=== PATIENT | male | born 1955 | race Caucasian/White ===

== ENCOUNTER → 2018-02-26 | Outpatient (CLI) | payer MEDICARE, OTHER ==
[2018-02-26 11:35] LABS: ABSOLUTE EOSINOPHILS # (AUTO) 0.1 10^3/uL (0.0-0.6); ABSOLUTE MONOCYTES (AUTO) 0.2 10^3/uL (0.1-1.4); ABSOLUTE NEUT (AUTO) 2.8 10^3/uL (1.7-8.2); BASOPHILS % (AUTO) 0.3 % (0-2); EOSINOPHILS % (AUTO) 1.6 % (0-6); HEMATOCRIT 40.4 % (37.9-51.0); HEMOGLOBIN 13.8 g/dL (13.5-17.0); MEAN CORPUSCULAR HEMOGLOBIN 30.6 pg (27.0-33.4); MEAN CORPUSCULAR HGB CONC 34.2 g/dL (32.0-36.0); MEAN CORPUSCULAR VOLUME 90 fl (80-97); MONOCYTES % (AUTO) 4.7 % (3-13); PLATELET COUNT 230 10^3/uL (150-450); RED BLOOD COUNT 4.51 10^6/uL (4.35-5.55); RED CELL DISTRIBUTION WIDTH 13.2 % (11.5-14.0); SEGMENTED NEUTROPHILS % (AUTO) 69.4 % (42-78); TOTAL CELLS COUNTED % (AUTO) 100 %; WHITE BLOOD COUNT 4.1 10^3/uL (4.0-10.5)
[2018-02-26 11:52] LABS: ALANINE AMINOTRANSFERASE 16 U/L (21-72); ALBUMIN 3.9 g/dL (3.5-5.0); ALKALINE PHOSPHATASE 117 U/L (38-126); ANION GAP 14 (5-19); ASPARTATE AMINO TRANSFERASE 22 U/L (17-59); BILIRUBIN,DIRECT 0.3 mg/dL (0.0-0.4); BILIRUBIN,TOTAL 0.8 mg/dL (0.2-1.3); BLOOD UREA NITROGEN 14 mg/dL (7-20); CALCIUM 9.5 mg/dL (8.4-10.2); CARBON DIOXIDE 26 mmol/L (22-30); CHLORIDE 99 mmol/L (98-107); GLUCOSE 241 mg/dL (75-110); POTASSIUM 4.9 mmol/L (3.6-5.0); SODIUM 138.8 mmol/L (137-145)
[2018-02-27 13:38] LABS: CREATININE URINE 30.6 mg/dL (Not Estab.)
[2018-02-28 07:05] LABS: MICROALBUMIN URINE <3.0 ug/mL (Not Estab.)
== END ==
LOC: OD 10:17
PROVIDERS: ATTEND Family Medicine Geriatric Medicine
DX: E55.9 Vitamin D deficiency, unspecified (principal); E11.9 Type 2 diabetes mellitus without complications; I10 Essential (primary) hypertension; E66.01 Morbid (severe) obesity due to excess calories; Z79.899 Other long term (current) drug therapy
CPT/HCPCS: 36415; 80053; 82043; 82306; 82570; 83036; 84443; 85025

== ENCOUNTER → 2018-03-30 | Outpatient (CLI) | payer MEDICARE, OTHER ==
[2018-03-30 10:26] LABS: ALANINE AMINOTRANSFERASE 14 U/L (21-72); ALBUMIN 3.7 g/dL (3.5-5.0); ALKALINE PHOSPHATASE 111 U/L (38-126); ANION GAP 9 (5-19); ASPARTATE AMINO TRANSFERASE 23 U/L (17-59); BILIRUBIN,DIRECT 0.2 mg/dL (0.0-0.4); BILIRUBIN,TOTAL 0.5 mg/dL (0.2-1.3); BLOOD UREA NITROGEN 15 mg/dL (7-20); CALCIUM 9.4 mg/dL (8.4-10.2); CARBON DIOXIDE 28 mmol/L (22-30); CHLORIDE 102 mmol/L (98-107); CHOLESTEROL 158.71 mg/dL (0-200); GLUCOSE 153 mg/dL (75-110); POTASSIUM 5.2 mmol/L (3.6-5.0); SODIUM 139.1 mmol/L (137-145); TOTAL PROTEIN 6.9 g/dL (6.3-8.2); TRIGLYCERIDES 52 mg/dL (<150)
[2018-03-30 10:37] LABS: DIRECT LDL 84 mg/dL (<100)
== END ==
LOC: OD 08:28
PROVIDERS: ATTEND Family Medicine Geriatric Medicine
DX: E11.9 Type 2 diabetes mellitus without complications (principal); I10 Essential (primary) hypertension; Z79.899 Other long term (current) drug therapy
CPT/HCPCS: 36415; 80053; 80061; 83036

== ENCOUNTER → 2018-04-04 | Outpatient (CLI) | payer MEDICARE, OTHER ==
[2018-04-04 08:50] LABS: ANION GAP 9 (5-19); BLOOD UREA NITROGEN 13 mg/dL (7-20); CALCIUM 9.6 mg/dL (8.4-10.2); CARBON DIOXIDE 28 mmol/L (22-30); CHLORIDE 102 mmol/L (98-107); CHOLESTEROL 181.11 mg/dL (0-200); GLUCOSE 190 mg/dL (75-110); POTASSIUM 5.2 mmol/L (3.6-5.0); SODIUM 139.1 mmol/L (137-145); TRIGLYCERIDES 57 mg/dL (<150)
[2018-04-04 09:01] LABS: DIRECT LDL 91 mg/dL (<100)
== END ==
LOC: OD 08:07
PROVIDERS: ATTEND Family Medicine Geriatric Medicine
DX: K21.0 Gastro-esophageal reflux disease with esophagitis (principal); Z79.899 Other long term (current) drug therapy; Z29.9 Encounter for prophylactic measures, unspecified; E11.42 Type 2 diabetes mellitus with diabetic polyneuropathy; I73.9 Peripheral vascular disease, unspecified; I10 Essential (primary) hypertension
CPT/HCPCS: 36415; 80048; 80061; 83036

== ENCOUNTER → 2018-04-11 | Outpatient (CLI) | payer MEDICARE, OTHER ==
[2018-04-11 09:58] LABS: ALANINE AMINOTRANSFERASE 23 U/L (21-72); CHOLESTEROL 183.63 mg/dL (0-200); POTASSIUM 5.3 mmol/L (3.6-5.0); TRIGLYCERIDES 83 mg/dL (<150)
[2018-04-11 10:09] LABS: DIRECT LDL 91 mg/dL (<100)
== END ==
LOC: OD 08:06
PROVIDERS: ATTEND Family Medicine Geriatric Medicine
DX: E87.5 Hyperkalemia (principal); E78.5 Hyperlipidemia, unspecified; E11.42 Type 2 diabetes mellitus with diabetic polyneuropathy; I73.9 Peripheral vascular disease, unspecified; I10 Essential (primary) hypertension; E55.9 Vitamin D deficiency, unspecified; K21.0 Gastro-esophageal reflux disease with esophagitis; E66.01 Morbid (severe) obesity due to excess calories; Z80.42 Family history of malignant neoplasm of prostate; Z29.9 Encounter for prophylactic measures, unspecified; Z79.899 Other long term (current) drug therapy; Z68.41 Body mass index [BMI] 40.0-44.9, adult
CPT/HCPCS: 36415; 80061; 84132; 84460

== ENCOUNTER → 2018-04-20 | Outpatient (CLI) | payer MEDICARE, OTHER | LOC: OD 07:38 | PROVIDERS: ATTEND Family Medicine Geriatric Medicine | DX: E87.5 Hyperkalemia (principal) | CPT/HCPCS: 36415; 84132 ==

== ENCOUNTER → 2018-05-31 | Outpatient (CLI) | payer MEDICARE, OTHER ==
[2018-05-31 09:23] LABS: ALANINE AMINOTRANSFERASE 29 U/L (21-72); TRIGLYCERIDES 58 mg/dL (<150)
[2018-05-31 09:34] LABS: DIRECT LDL 44 mg/dL (<100)
== END ==
LOC: OD 08:25
PROVIDERS: ATTEND Family Medicine Geriatric Medicine
DX: E78.5 Hyperlipidemia, unspecified (principal); Z79.899 Other long term (current) drug therapy
CPT/HCPCS: 36415; 80061; 84460

== ENCOUNTER → 2019-02-04 | Outpatient (CLI) | payer MEDICARE, OTHER ==
--- NOTE | 2019-02-04 08:56 | RADIOLOGY REPORT (SQ) ---
EXAM DESCRIPTION: CHEST PA/LATERAL COMPLETED DATE/TIME: 02/04/2019 8:31 am REASON FOR STUDY: PRE-OP COMPARISON: None. EXAM PARAMETERS: NUMBER OF VIEWS: two views TECHNIQUE: Digital Frontal and Lateral radiographic views of the chest acquired. RADIATION DOSE: NA LIMITATIONS: none FINDINGS: LUNGS AND PLEURA: No consolidation, pleural effusion or pneumothorax. MEDIASTINUM AND HILAR STRUCTURES: No mediastinal or hilar contour abnormality. HEART AND VASCULAR STRUCTURES: The cardiac silhouette and pulmonary vasculature are within normal ramos its. BONES: No acute findings. HARDWARE: There surgical clips that project over the right apex. OTHER: No other finding. IMPRESSION: No acute cardiopulmonary process. TECHNICAL DOCUMENTATION: JOB ID: [id number]- All Rights Reserved Reading location - IP/workstation name: [email or web address]
[2019-02-04 09:49] LABS: ABSOLUTE LYMPHOCYTES (AUTO) 1.1 10^3/uL (0.5-4.7); ABSOLUTE MONOCYTES (AUTO) 0.3 10^3/uL (0.1-1.4); ABSOLUTE NEUT (AUTO) 3.1 10^3/uL (1.7-8.2); BASOPHILS % (AUTO) 0.7 % (0-2); HEMATOCRIT 40.4 % (37.9-51.0); HEMOGLOBIN 13.7 g/dL (13.5-17.0); LYMPHOCYTES % (AUTO) 24.6 % (13-45); MEAN CORPUSCULAR HEMOGLOBIN 30.6 pg (27.0-33.4); MEAN CORPUSCULAR HGB CONC 33.9 g/dL (32.0-36.0); MEAN CORPUSCULAR VOLUME 90 fl (80-97); MONOCYTES % (AUTO) 5.8 % (3-13); PLATELET COUNT 227 10^3/uL (150-450); RED BLOOD COUNT 4.47 10^6/uL (4.35-5.55); RED CELL DISTRIBUTION WIDTH 14.5 % (11.5-14.0); SEGMENTED NEUTROPHILS % (AUTO) 67.9 % (42-78); TOTAL CELLS COUNTED % (AUTO) 100 %; WHITE BLOOD COUNT 4.6 10^3/uL (4.0-10.5)
[2019-02-04 09:57] LABS: APPEARANCE,URINE CLEAR; BILIRUBIN,URINE NEGATIVE (NEGATIVE); COLOR,URINE YELLOW; GLUCOSE, URINE >=500 mg/dL (NEGATIVE); KETONES,URINE TRACE mg/dL (NEGATIVE); LEUKOCYTE ESTERASE,URINE NEGATIVE (NEGATIVE); NITRITE,URINE NEGATIVE (NEGATIVE); PROTEIN,URINE NEGATIVE (NEGATIVE); URINE SPECIFIC GRAVITY 1.023; UROBILINOGEN,URINE NEGATIVE mg/dL (<2.0)
[2019-02-04 10:10] LABS: ANION GAP 12 (5-19); BLOOD UREA NITROGEN 16 mg/dL (7-20); CALCIUM 9.4 mg/dL (8.4-10.2); CARBON DIOXIDE 24 mmol/L (22-30); CHLORIDE 102 mmol/L (98-107); GLUCOSE 328 mg/dL (75-110); POTASSIUM 5.2 mmol/L (3.6-5.0)
--- NOTE | 2019-02-04 14:41 | EKG REPORT ---
SEVERITY:- ABNORMAL ECG - SINUS RHYTHM INCOMPLETE RBBB AND LAFB BORDERLINE R WAVE PROGRESSION, ANTERIOR LEADS BORDERLINE PROLONGED QT INTERVAL : Confirmed by: Angelica Zhu MD 04-Feb-2019 14:40:21
== END ==
LOC: OD 07:52
PROVIDERS: ATTEND Orthopaedic Surgery
DX: Z01.810 Encounter for preprocedural cardiovascular examination (principal); Z01.811 Encounter for preprocedural respiratory examination; Z01.812 Encounter for preprocedural laboratory examination; Z96.659 Presence of unspecified artificial knee joint; E11.9 Type 2 diabetes mellitus without complications
CPT/HCPCS: 36415; 71046; 80048; 81001; 83036; 85025; 93005; 93010

== ENCOUNTER 2019-03-04 09:32 | Observation (INO) | payer MEDICARE, OTHER ==
[~2019-03-04 09:32] MED LIST: BUPIVACAINE INJ/PF LIPOSOME/PF 266 MG/20 ML SDV INJ PRN; CEFAZOLIN INJ 1 GM VIAL INJ PRN; CEFAZOLIN INJ 1 GM VIAL ONE; IBUPROFEN 800 MG in NORMAL SALINE 250 ML IV PRN; LACTATED RINGERS 1000 ML IV PRN; LIDOCAINE 0.5% INJ-PF (5 MG/ML) 50 ML SDV SUBCUT PRN; OXYCODONE HCL SR 10 MG TABLET PO PRN; PANTOPRAZOLE SODIUM 20 MG TABLET.DR PO PRN; VANCOMYCIN HCL 1,000 MG in DEXTROSE 5%-WATER 250 ML IV PRN; VANCOMYCIN HCL INJ 1000 MG VIAL ONE
[2019-03-04] MEDS ORDERED: MIDAZOLAM 2 MG/2 ML INJ ONE (10:43)
[2019-03-04] MEDS ORDERED: FENTANYL CITRATE INJ/PF 100 MCG/2 ML AMPUL ONE (10:43)
[2019-03-04] MEDS ORDERED: TRANEXAMIC ACID INJ/PF 1,000 MG/10 ML SDV ONE (10:44)
[2019-03-04] MEDS ORDERED: EPHEDRINE SULFATE INJ 50 MG/1 ML AMPULE ONE (10:44)
[2019-03-04] MEDS ORDERED: ONDANSETRON HCL INJ/PF 4 MG/2 ML SDV ONE (10:44)
[2019-03-04] MEDS ORDERED: PROPOFOL INJ 200 MG/20 ML VIAL IV ONE (10:44)
[2019-03-04] MEDS ORDERED: OXYCODONE HCL SR 10 MG TABLET PO ONE (10:52)
[2019-03-04] MEDS ORDERED: PANTOPRAZOLE SODIUM 20 MG TABLET.DR PO ONE (10:53)
[2019-03-04] MEDS ORDERED: PROMETHAZINE HCL INJ 25 MG/1 ML VIAL IV PRN ×2 (13:02)
[2019-03-04] MEDS ORDERED: MORPHINE SULFATE 10 MG/ML INJ IV PRN (13:02)
[2019-03-04] MEDS ORDERED: FENTANYL CITRATE INJ/PF 100 MCG/2 ML AMPUL IV PRN ×3 (13:02)
[2019-03-04] MEDS ORDERED: DIPHENHYDRAMINE HCL 50 MG/ML VIAL IV PRN ×2 (13:02→13:16)
[2019-03-04] MEDS ORDERED: OXYCODONE-ACETAMINOPHEN 5-325 MG TABLET PO PRN ×2 (13:02)
[2019-03-04] MEDS ORDERED: MEPERIDINE HCL/PF INJ 25 MG/1 ML DISP.SYRIN IV PRN (13:02)
[2019-03-04] MEDS ORDERED: ONDANSETRON HCL INJ/PF 4 MG/2 ML SDV IV PRN ×2 (13:02→13:16)
[2019-03-04] MEDS ORDERED: ACETAMINOPHEN 325 MG TABLET PO PRN (13:16)
[2019-03-04] MEDS ORDERED: MAG HYDROX/AL HYDROX/SIMETH SUSP 30 ML UDCUP PO PRN (13:16)
[2019-03-04] MEDS ORDERED: OXYCODONE HCL IR 5 MG TABLET PO PRN (13:16)
[2019-03-04] MEDS ORDERED: ZOLPIDEM TARTRATE 5 MG TABLET PO PRN (13:16)
[2019-03-04] MEDS ORDERED: ONDANSETRON 4 MG TAB.RAPDIS PO PRN (13:16)
--- NOTE | 2019-03-04 13:16 | Operative Report ---
Operative Report DATE OF SURGERY: 03/04/19 PREOPERATIVE DIAGNOSIS: Right prosthetic patellofemoral maltracking OPERATION: Right patella revision SURGEON: MARJAN FLORENTINO ANESTHESIA: Spinal TISSUE REMOVED OR ALTERED: Cultures x2 to microbiology. Implant to CSS ESTIMATED BLOOD LOSS: 100 PROCEDURE: With the patient supine on operative table the right lower extremity is prepped and draped in a sterile fashion. The limb is elevated for exsanguination tourniquet inflated 280 torr. A a previous median parapatellar approach the knee is taken. Upon entering the capsule cultures were taken of the underlying synovial fluid. In order to keith the patella lateral patellar retinacular release is performed as well as elevation of the superficial aspect of the tibial tubercle. The examination of the knee reveals that there is contact between the lateral aspect of the patella and the lateral femoral condyle with underlying eburnated bone. The existing patellar implant is removed using oscillating saw. The patella was recut using the oscillating saw to remove the lateral protrusion. This is now sized to a 40 mm oval patella. Bridging is used a fashion patellar holes and the existing patella and poly-methacrylate with tobramycin was mixed to cement a 40 mm Anai asymmetric patella into this location. Once the cement is cured excess cement is removed. Patella tracking appears to be central. Tourniquet is deflated. Hemostasis obtained with electrocautery. The wound is irrigated with 3 L normal saline containing Betadine. Is then closed in layers with interrupted Vicryl followed by kris. A sterile compressive dressing was applied and the patient is returned to PACU in satisfactory condition.
[2019-03-04] MEDS ORDERED: GLUCAGON,HUMAN RECOMB 1 MG INJ IM PRN (14:00)
[2019-03-04] MEDS ORDERED: DEXTROSE 40% GEL 15 GM TUBE PO PRN (14:00)
[2019-03-04] MEDS ORDERED: DEXTROSE 40% GEL 15 GM TUBE X 2 PO PRN (14:00)
[2019-03-04] MEDS ORDERED: DEXTROSE 50%-WATER SYRINGE 12.5 GM/25 ML DOSE IV PRN (14:00)
[2019-03-04] MEDS ORDERED: DEXTROSE 50%-WATER SYRINGE 25 GM/50 ML DOSE IV PRN (14:00)
--- NOTE | 2019-03-04 14:43 | RADIOLOGY REPORT (SQ) ---
EXAM DESCRIPTION: KNEE RIGHT 2 VIEWS COMPLETED DATE/TIME: 03/04/2019 1:59 pm REASON FOR STUDY: Post OP -Long Cassette in PACU Z96.659 PRESENCE OF UNSPECIFIED ARTIFICIAL KNEE NAVA INT COMPARISON: None. NUMBER OF VIEWS: Two view(s). TECHNIQUE: Digital radiographic images of the right knee post-procedure. LIMITATIONS: None. FINDINGS: BONES: No worrisome or unexpected findings post-procedure. DEVICE: Total knee arthroplasty SOFT TISSUES: No worrisome findings. Expected postoperative soft tissue changes. IMPRESSION: SATISFACTORY POSTOPERATIVE RIGHT KNEE. TECHNICAL DOCUMENTATION: JOB ID: [id number] [employer]- All Rights Reserved Reading location - IP/workstation name: [email or web address]
[2019-03-04] MEDS ORDERED: PHENYLEPHRINE HCL INJ/PF 10 MG/1 ML SDV ONE (14:48)
[2019-03-04] MEDS ORDERED: TRANEXAMIC ACID INJ/PF 1,000 MG/10 ML SDV IV ONE (15:00)
[2019-03-04] MEDS: INSULIN LISPRO 100 UNIT/ML 3 ML VIAL SUBCUT SCH ×2 (15:37→21:09)
[2019-03-04] MEDS: IBUPROFEN 800 MG in NORMAL SALINE 250 ML IV SCH (16:22)
[2019-03-04] MEDS: SENNOSIDES/DOCUSATE 8.6-50 MG 1 EACH TABLET PO SCH (18:28)
[2019-03-04] MEDS: OXYCODONE HCL SR 10 MG TABLET PO SCH (21:10)
[2019-03-05] MEDS ORDERED: VANCOMYCIN HCL 1,000 MG in DEXTROSE 5%-WATER 250 ML IV ONE (01:30)
[2019-03-05] MEDS: IBUPROFEN 800 MG in NORMAL SALINE 250 ML IV SCH ×4 (01:37→21:24)
[2019-03-05] MEDS: PANTOPRAZOLE SODIUM 40 MG TABLET.DR PO SCH (06:26)
[2019-03-05 06:28] LABS: HEMOGLOBIN 11.5 g/dL (13.5-17.0); MEAN CORPUSCULAR HEMOGLOBIN 30.6 pg (27.0-33.4); MEAN CORPUSCULAR HGB CONC 33.7 g/dL (32.0-36.0); MEAN CORPUSCULAR VOLUME 91 fl (80-97); PLATELET COUNT 180 10^3/uL (150-450); RED BLOOD COUNT 3.74 10^6/uL (4.35-5.55); RED CELL DISTRIBUTION WIDTH 14.3 % (11.5-14.0); WHITE BLOOD COUNT 3.7 10^3/uL (4.0-10.5)
[2019-03-05 06:53] LABS: ANION GAP 10 (5-19); BLOOD UREA NITROGEN 16 mg/dL (7-20); CALCIUM 8.7 mg/dL (8.4-10.2); CARBON DIOXIDE 27 mmol/L (22-30); CHLORIDE 100 mmol/L (98-107); GLUCOSE 244 mg/dL (75-110); POTASSIUM 4.4 mmol/L (3.6-5.0)
--- NOTE | 2019-03-05 07:01 | PDOC DISCHARGE SUMMARY ---
Impression - Admit/DC Date/PCP Admission Date/Primary Care Provider: 03/04/19 09:32 LENKA KRAUS PA-C Discharge Date: 03/05/19 - Discharge Diagnosis (1) Mechanical complication of knee prosthesis Is this a current diagnosis for this admission?: Yes - Additional Information Resuscitation Status: Full Code Discharge Diet: Regular Discharge Activity: Balance Activity w/Rest, No tub bath Referrals: MARJAN FLORENTINO MD [ACTIVE STAFF] - 03/21/19 9:00 am Home Medications: Aspirin [Ecotrin] 81 mg PO DAILY 03/04/19 Benazepril HCl [Lotensin 10 Mg Tablet] 10 mg PO DAILY 03/04/19 Cholecalciferol (Vitamin D3) [Vitamin D3 2000 unit Tablet] 2,000 unit PO DAILY 03/04/19 Gabapentin [Neurontin 300 mg Capsule] 300 mg PO DAILY 03/04/19 Hum Insulin NPH/Reg Insulin Hm [Insulin Inj 70-30 (100 Unit/1 ml) 3 ml Vial] 0 unit SUBCUT .PER SLD SCALE 03/04/19 Metformin HCl [Glucophage 500 mg Tablet] 500 mg PO DAILY 03/04/19 Rosuvastatin Calcium [Crestor 20 mg Tablet] 20 mg PO DAILY 03/04/19 History of Present Illiness History of Present Illness: JESSICA ROSE is a 64 year old male Patient is a 64-year-old white male status post right knee arthroplasty in the past with ongoing knee pain that is been refractory and to physical therapy, anti-inflammatory medication, and bracing. Patient is admitted for elective revision right knee arthroplasty. Hospital Course Hospital Course: Patient is admitted through the operating room where he undergoes uncomplicated revision. Is returned to floor in satisfactory condition. He is seen by physical therapy makes satisfactory progress ambulating and weightbearing as tolerated basis. He seen the first postoperative morning and the relying compressive dressing is removed. Underlying OpSite dressings clean dry and intact. There is minimal pedal edema. Distal neurovascular examination is intact. Physical Exam Vital Signs: Temp Pulse Resp BP Pulse Ox 36.4 C 80 18 118/49 L 98 03/04/19 23:13 03/04/19 23:13 03/04/19 23:13 03/04/19 23:13 03/04/19 23:13 Intake & Output 03/03/19 03/04/19 03/05/19 06:59 06:59 06:59 Intake Total 4741 Output Total 650 Balance 4091 Weight 127.8 kg General appearance: PRESENT: no acute distress Head exam: PRESENT: normocephalic Respiratory exam: PRESENT: unlabored Cardiovascular exam: PRESENT: RRR Pulses: PRESENT: +1 pedal pulses bilateral Vascular exam: PRESENT: normal capillary refill Musculoskeletal exam: PRESENT: other - As above Neurological exam: PRESENT: alert, awake, oriented to person, oriented to place, oriented to time, oriented to situation. ABSENT: motor sensory deficit Skin exam: PRESENT: dry, intact, warm. ABSENT: cyanosis, rash Results Laboratory Results: WBC 3.7 10^3/uL (4.0-10.5) L 03/05/19 04:27 RBC 3.74 10^6/uL (4.35-5.55) L 03/05/19 04:27 Hgb 11.5 g/dL (13.5-17.0) L 03/05/19 04:27 Hct 34.0 % (37.9-51.0) L 03/05/19 04:27 MCV 91 fl (80-97) 03/05/19 04:27 MCH 30.6 pg (27.0-33.4) 03/05/19 04:27 MCHC 33.7 g/dL (32.0-36.0) 03/05/19 04:27 RDW 14.3 % (11.5-14.0) H 03/05/19 04:27 Plt Count 180 10^3/uL (150-450) 03/05/19 04:27 Potassium 4.4 mmol/L (3.6-5.0) 03/04/19 10:46 POC Glucose 297 mg/dL (70-110) H 03/05/19 06:05 Impressions: Knee X-Ray 03/04/19 13:18 IMPRESSION: SATISFACTORY POSTOPERATIVE RIGHT KNEE. Plan Plan of Treatment: Patient be discharged home with home health services and DME on weightbearing as tolerated basis. Follow-up with Dr. Jan Douglass [place] for surgery in 2 weeks for staple removal. Stroke Is this a Stroke Patient?: No Stroke Pt being discharged on Anti-thrombolytic therapy?: Yes Acute Heart Failure - Is this a Heart Failure Patient?: No
[2019-03-05] MEDS: INSULIN LISPRO 100 UNIT/ML 3 ML VIAL SUBCUT SCH ×4 (07:47→21:24)
[2019-03-05] MEDS: ASPIRIN 81 MG TABLET, ENT COATED PO SCH (11:12)
[2019-03-05] MEDS: OXYCODONE HCL SR 10 MG TABLET PO SCH ×2 (11:13→21:25)
[2019-03-05] MEDS: SENNOSIDES/DOCUSATE 8.6-50 MG 1 EACH TABLET PO SCH ×2 (11:13→18:16)
[2019-03-05] MEDS: PRENATAL VITAMIN W DHA CAPSULE PO SCH (11:13)
--- NOTE | 2019-03-05 14:46 | PDOC CONSULTATION ---
Consultation Consult Date: 03/05/19 Attending physician:: MARJAN FLORENTINO Provider Consulted: GISELLA MURILLO JR Consult reason:: Hypertension, hyperglycemia History of Present Illness Admission Date/PCP: 03/04/19 09:32 LENKA KRAUS PA-C History of Present Illness: JESSICA ROSE is a 64 year old male who was admitted to the hospital for a vision of a knee arthroplasty. We were asked to see the patient for hypertension and hyperglycemia. Patient had a blood pressure of 78/58 and blood sugar was 297 when patient was consulted. Patient states he has not been on his regular medications, and that he takes them at certain times during the day. Patient is on multiple medications at home Past Medical History Cardiac Medical History: Reports: Hyperlipidema, Hypertension Denies: Atrial Fibrillation, Congestive Heart Failure, Coronary Artery Disease, Myocardial Infarction, Peripheral Vascular Disease, Heart Murmur Pulmonary Medical History: Denies: Asthma, Bronchitis, Chronic Obstructive Pulmonary Disease (COPD), Sleep Apnea Neurological Medical History: Reports: Seizures - as a child Endocrine Medical History: Denies: Hyperthyroidism, Hypothyroidism GI Medical History: Denies: Gastroesophageal Reflux Disease Musculoskeltal Medical History: Reports: Arthritis Denies: Fibromyalgia Psychiatric Medical History: Denies: Bipolar Disorder, Dementia, Depression, Post Traumatic Stress Disorder Hematology: Denies: Anemia Past Surgical History Past Surgical History: Denies: Appendectomy, Cholecystectomy, Coronary Artery Bypass Graft, Gastric Bypass Surgery, Herniorrhaphy, Tonsillectomy Social History Smoking Status: Former Smoker Hx Recreational Drug Use: No Hx Prescription Drug Abuse: No Family History Family History: None Parental Family History Reviewed: No Children Family History Reviewed: No Sibling(s) Family History Reviewed.: No Medication/Allergy Home Medications: Aspirin [Ecotrin] 81 mg PO DAILY 03/04/19 Benazepril HCl [Lotensin 10 Mg Tablet] 10 mg PO DAILY 03/04/19 Cholecalciferol (Vitamin D3) [Vitamin D3 2000 unit Tablet] 2,000 unit PO DAILY 03/04/19 Gabapentin [Neurontin 300 mg Capsule] 300 mg PO DAILY 03/04/19 Hum Insulin NPH/Reg Insulin Hm [Insulin Inj 70-30 (100 Unit/1 ml) 3 ml Vial] 0 unit SUBCUT .PER SLD SCALE 03/04/19 Metformin HCl [Glucophage 500 mg Tablet] 500 mg PO DAILY 03/04/19 Rosuvastatin Calcium [Crestor 20 mg Tablet] 20 mg PO DAILY 03/04/19 Allergies/Adverse Reactions: quinine Allergy (Intermediate, Verified 03/04/19 10:02) Hives Review of Systems Constitutional: ABSENT: chills, fever(s), headache(s), weight gain, weight loss Cardiovascular: ABSENT: chest pain, dyspnea on exertion, edema, orthropnea, palpitations Respiratory: ABSENT: cough, hemoptysis Musculoskeletal: PRESENT: other - Per orthopedics Neurological: ABSENT: abnormal gait, abnormal speech, confusion, dizziness, focal weakness, syncope Psychiatric: ABSENT: anxiety, depression, homidical ideation, suicidal ideation Physical Exam Vital Signs: Temp Pulse Resp BP Pulse Ox 98.7 F 90 17 137/52 H 99 03/05/19 10:48 03/05/19 10:48 03/05/19 10:48 03/05/19 10:48 03/05/19 10:48 Intake & Output 03/04/19 03/05/19 03/06/19 06:59 06:59 06:59 Intake Total 4741 1087 Output Total 650 400 Balance 4091 687 Weight 127.8 kg General appearance: PRESENT: no acute distress, well-developed, well-nourished, other - Speaking in full sentences in no distress Respiratory exam: PRESENT: clear to auscultation patrice. ABSENT: rales, rhonchi, wheezes Cardiovascular exam: PRESENT: RRR. ABSENT: diastolic murmur, rubs, systolic murmur Extremities exam: PRESENT: tenderness, other - Slight redness around the right knee with slight edema Neurological exam: PRESENT: alert, awake, oriented to person, oriented to place, oriented to time, oriented to situation, CN II-XII grossly intact. ABSENT: motor sensory deficit Psychiatric exam: PRESENT: anxious, appropriate affect, normal mood. ABSENT: homicidal ideation, suicidal ideation Results Laboratory Results: 03/05/19 04:27 03/05/19 04:27 03/05/19 03/05/19 04:27 04:27 WBC 3.7 L RBC 3.74 L Hgb 11.5 L Hct 34.0 L MCV 91 MCH 30.6 MCHC 33.7 RDW 14.3 H Plt Count 180 Sodium 137.2 Potassium 4.4 Chloride 100 Carbon Dioxide 27 Anion Gap 10 BUN 16 Creatinine 0.71 Est GFR ( Amer) > 60 Glucose 244 H Calcium 8.7 Impressions: Knee X-Ray 03/04/19 13:18 IMPRESSION: SATISFACTORY POSTOPERATIVE RIGHT KNEE. Assessment and Plan - Diagnosis (1) Hypotension Is this a current diagnosis for this admission?: Yes (2) Hyperglycemia Is this a current diagnosis for this admission?: Yes (3) Diabetes Is this a current diagnosis for this admission?: Yes (4) Mechanical complication of knee prosthesis Is this a current diagnosis for this admission?: Yes - Plan Summary Summary: Patient will be placed on fluids 150 mL's per hour, his regular medications will be resumed. If patient stabilizes this afternoon and tonight which I suspect he will he will be discharged in the morning, or potentially even late this evening - Time Time Spent with patient: 35 or more minutes
[2019-03-05] MEDS: GABAPENTIN 300 MG CAPSULE PO SCH (15:41)
[2019-03-05] MEDS: METFORMIN HCL 500 MG TABLET PO SCH (15:42)
[2019-03-05] MEDS: RINGERS SOLUTION,LACTATED 1,000 ML IV PRN (15:43)
[2019-03-05] MEDS ORDERED: ATORVASTATIN CALCIUM 40 MG TABLET PO SCH (22:00)
[2019-03-06 04:54] LABS: HEMATOCRIT 32.7 % (37.9-51.0); HEMOGLOBIN 11.1 g/dL (13.5-17.0); MEAN CORPUSCULAR HEMOGLOBIN 30.4 pg (27.0-33.4); MEAN CORPUSCULAR HGB CONC 33.8 g/dL (32.0-36.0); MEAN CORPUSCULAR VOLUME 90 fl (80-97); PLATELET COUNT 157 10^3/uL (150-450); RED BLOOD COUNT 3.64 10^6/uL (4.35-5.55); RED CELL DISTRIBUTION WIDTH 14.1 % (11.5-14.0); WHITE BLOOD COUNT 3.5 10^3/uL (4.0-10.5)
[2019-03-06] MEDS: IBUPROFEN 800 MG in NORMAL SALINE 250 ML IV SCH (06:12)
[2019-03-06] MEDS: PANTOPRAZOLE SODIUM 40 MG TABLET.DR PO SCH (06:13)
[2019-03-06] MEDS: RINGERS SOLUTION,LACTATED 1,000 ML IV PRN (06:13)
[2019-03-06] MEDS: INSULIN LISPRO 100 UNIT/ML 3 ML VIAL SUBCUT SCH (07:59)
[2019-03-06 09:12] VITALS: BP 102/50
[2019-03-06] MEDS ORDERED: BENAZEPRIL HCL 10 MG TABLET PO SCH (10:00)
[2019-03-06] MEDS ORDERED: CHOLECALCIFEROL (D3) 1,000 UNIT (25 MCG) TABLET PO SCH (10:00)
[2019-03-06] MEDS ORDERED: (PENDING PHARMACY ID) (Rosuvastatin Calcium [Crestor 20 Mg Tablet] 20 MG) PO SCH (10:00)
[2019-03-06] MEDS ORDERED: (PENDING PHARMACY ID) (Cholecalciferol (Vitamin D3) [Vitamin D3 2000 Unit Tablet] 2,000 UN PO SCH (10:00)
[2019-03-06] MEDS: METFORMIN HCL 500 MG TABLET PO SCH (10:04)
[2019-03-06] MEDS: GABAPENTIN 300 MG CAPSULE PO SCH (10:04)
[2019-03-06] MEDS: PRENATAL VITAMIN W DHA CAPSULE PO SCH (10:05)
[2019-03-06] MEDS: ASPIRIN 81 MG TABLET, ENT COATED PO SCH (10:05)
[2019-03-06] MEDS: OXYCODONE HCL SR 10 MG TABLET PO SCH (10:05)
[2019-03-06] MEDS: SENNOSIDES/DOCUSATE 8.6-50 MG 1 EACH TABLET PO SCH (10:05)
--- NOTE | 2019-03-06 10:19 | PDOC PROGRESS REPORT ---
Subjective Progress Note for:: 03/06/19 Reason For Visit: Z96.659 PRESENCE OF UNSPECIFIED ARTIFICIAL KNEE NAVA 03/06/2019 Hospital consult for hypertension, diabetes. Patient medically stable to be discharged today. No medication changes from yesterday's discharge summary. No change in treatment from yesterday's discharge summary Physical Exam Vital Signs: Temp Pulse Resp BP Pulse Ox 97.7 F 85 16 102/50 L 97 03/06/19 08:59 03/06/19 08:59 03/06/19 08:59 03/06/19 08:59 03/06/19 08:59 Intake & Output 03/05/19 03/06/19 03/07/19 06:59 06:59 06:59 Intake Total 4741 3897 250 Output Total 650 2925 Balance 4091 972 250 Weight 127.8 kg 132 kg General appearance: PRESENT: no acute distress Respiratory exam: PRESENT: clear to auscultation patrice. ABSENT: rales, rhonchi, wheezes Cardiovascular exam: PRESENT: RRR. ABSENT: diastolic murmur, rubs, systolic murmur Extremities exam: PRESENT: +1 edema, other - Slight redness no sign of infection Results Laboratory Results: 03/06/19 04:13 03/05/19 04:27 03/06/19 04:13 WBC 3.5 L RBC 3.64 L Hgb 11.1 L Hct 32.7 L MCV 90 MCH 30.4 MCHC 33.8 RDW 14.1 H Plt Count 157 Impressions: Knee X-Ray 03/04/19 13:18 IMPRESSION: SATISFACTORY POSTOPERATIVE RIGHT KNEE. Assessment and Plan - Diagnosis (1) Hypotension Is this a current diagnosis for this admission?: Yes (2) Hyperglycemia Is this a current diagnosis for this admission?: Yes (3) Diabetes Is this a current diagnosis for this admission?: Yes (4) Mechanical complication of knee prosthesis Is this a current diagnosis for this admission?: Yes - Plan Summary Summary: Patient will be placed on fluids 150 mL's per hour, his regular medications will be resumed. If patient stabilizes this afternoon and tonight which I suspect he will he will be discharged in the morning, or potentially even late this evening 03/06/2019 Patient's vital signs this morning are stable temperature 98.5, pulse 77 blood pressure 135/44 glucose 272 Patient feels good has no complaints, satisfied that once patient gets home on his regular medications and regular schedule will do well. Discharge summary has already been dictated by orthopedics, I have put an order in to discharge patient this morning to home, on his regular medications - Time Time Spent with patient: 15-24 minutes
== END 2019-03-06 12:00 | disposition home or self-care (01) ==
LOC: INOR 09:32 → INTOOBSV 09:32 → 4N 15:00
PROVIDERS: ADMIT Orthopaedic Surgery; ATTEND Orthopaedic Surgery
DX: T84.092A Other mechanical complication of internal right knee prosthesis, initial encounter (principal); Y83.8 Other surgical procedures as the cause of abnormal reaction of the patient, or of later complication, without mention of misadventure at the time of the procedure; I95.9 Hypotension, unspecified; E78.5 Hyperlipidemia, unspecified; I10 Essential (primary) hypertension; E11.65 Type 2 diabetes mellitus with hyperglycemia; E11.40 Type 2 diabetes mellitus with diabetic neuropathy, unspecified; M19.90 Unspecified osteoarthritis, unspecified site; Z87.891 Personal history of nicotine dependence; Z79.82 Long term (current) use of aspirin; Z79.899 Other long term (current) drug therapy; Z01.811 Encounter for preprocedural respiratory examination; Z01.812 Encounter for preprocedural laboratory examination
CPT/HCPCS: 27486; 36415 ×3; 87070; 87205; 82962 ×3; 84132; 85027 ×2; 87075; 80048; 73560; 94799; 97530; 97110; 97116; 97162; 97535; 97166; 01402; C1713 ×2; C1776; A9270 ×23; J2250; J0690; J3490 ×2; J2370; J2405; J7060 ×2; J7050 ×3; J7120 ×2; J2704; J3370 ×2; J1741 ×3; J1815; J3010

== ENCOUNTER 2020-01-26 15:38 | Emergency (ER) | payer MEDICARE, OTHER ==
[2020-01-26] MEDS ORDERED: NORMAL SALINE 1000 ML 1,000 ML IV ONE ×2 (15:54→19:00)
--- NOTE | 2020-01-26 16:01 | ER Document Report ---
ED Medical Screen (RME) - General Chief Complaint: Vomiting Stated Complaint: VOMITING Time Seen by Provider: 01/26/20 15:51 Primary Care Provider: LENKA KRAUS PA-C [Primary Care Provider] - Follow up as needed Mode of Arrival: Wheelchair Information source: Patient Notes: 65-year-old male presented to ED for complaint of nausea vomiting x3 days. He states he did not take his insulin this morning because he could not keep any fluids down. He states his Accu-Chek was about 180 this morning he has not taken it since then but has not eaten and he has not taken any insulin since then. He states he has thrown up 2 times today but has not eaten any food due to the vomiting. States he is urinating a lot more than he normally does and has been more thirsty. He has insulin-dependent diabetic. Patient denies any pain any diarrhea or any other symptoms except for the nausea vomiting frequent urination and thirst. I have greeted and performed a rapid initial assessment of this patient. A comprehensive ED assessment and evaluation of the patient, analysis of test results and completion of medical decision making process will be conducted by an additional ED providers. TRAVEL OUTSIDE OF THE [place] IN LAST 30 DAYS: No - HPI Onset: Other - The days Onset/Duration: Intermittent Quality of pain: No pain Severity: None Pain Level: Denies Associated Symptoms: Vomiting Exacerbated by: Denies Relieved by: Denies Similar symptoms previously: Yes Recently seen / treated by doctor: No - Related Data Smoking: Non-smoker Frequency of alcohol use: Occasional Drug Abuse: None Allergies/Adverse Reactions: quinine Allergy (Intermediate, Verified 03/04/19 10:02) Hives Past Medical History - General Information source: Patient - Social History Lives with: Family Family history: Reviewed & Not Pertinent - Past Medical History Cardiac Medical History: Reports: Hx Hypercholesterolemia, Hx Hypertension Pulmonary Medical History: Reports: None EENT Medical History: Reports: None Neurological Medical History: Reports: Hx Seizures - as a child, Other - Aneurysms Endocrine Medical History: Reports: Hx Diabetes Mellitus Type 2 Renal/ Medical History: Reports: None Malignancy Medical History: Reports None GI Medical History: Reports: None Musculoskeltal Medical History: Reports Hx Arthritis, Reports Hx Musculoskeletal Trauma Skin Medical History: Reports None Traumatic Medical History: Reports: Hx Fractures - left wrist right knee Past Surgical History: Reports: Hx Vascular Surgery - Carotid artery stents for aneurysms. Denies: Hx Appendectomy, Hx Bowel Surgery, Hx Cholecystectomy, Hx Coronary Artery Bypass Graft, Hx Gastric Bypass Surgery, Hx Herniorrhaphy, Hx Tonsillectomy Physical Exam - Vital signs Vitals: Temp Pulse Resp BP Pulse Ox 98.7 F 73 20 105/80 99 01/26/20 15:48 01/26/20 15:48 01/26/20 15:48 01/26/20 15:48 01/26/20 15:48 Course - Vital Signs Vital signs: Temp Pulse Resp BP Pulse Ox 98.7 F 73 20 105/80 99 01/26/20 15:48 01/26/20 15:48 01/26/20 15:48 01/26/20 15:48 01/26/20 15:48 Doctor's Discharge - Discharge Referrals: LENKA KRAUS PA-C [Primary Care Provider] - Follow up as needed
[2020-01-26] MEDS ORDERED: ONDANSETRON 4 MG TAB.RAPDIS PO ONE ×2 (16:05→19:00)
[2020-01-26 17:16] LABS: ABSOLUTE EOSINOPHILS # (AUTO) 0.1 10^3/uL (0.0-0.6); ABSOLUTE LYMPHOCYTES (AUTO) 0.9 10^3/uL (0.5-4.7); ABSOLUTE MONOCYTES (AUTO) 0.3 10^3/uL (0.1-1.4); ABSOLUTE NEUT (AUTO) 4.1 10^3/uL (1.7-8.2); BASOPHILS % (AUTO) 0.3 % (0-2); EOSINOPHILS % (AUTO) 0.9 % (0-6); HEMATOCRIT 42.5 % (37.9-51.0); HEMOGLOBIN 14.5 g/dL (13.5-17.0); LYMPHOCYTES % (AUTO) 17.2 % (13-45); MEAN CORPUSCULAR HEMOGLOBIN 31.2 pg (27.0-33.4); MEAN CORPUSCULAR HGB CONC 34.1 g/dL (32.0-36.0); MEAN CORPUSCULAR VOLUME 92 fl (80-97); MONOCYTES % (AUTO) 5.5 % (3-13); PLATELET COUNT 213 10^3/uL (150-450); RED BLOOD COUNT 4.64 10^6/uL (4.35-5.55); RED CELL DISTRIBUTION WIDTH 14.2 % (11.5-14.0); SEGMENTED NEUTROPHILS % (AUTO) 76.1 % (42-78); TOTAL CELLS COUNTED % (AUTO) 100 %; WHITE BLOOD COUNT 5.4 10^3/uL (4.0-10.5)
[2020-01-26 17:18] LABS: VENOUS BLOOD BASE EXCESS 4.5 mmol/L; VENOUS BLOOD HCO3 31.7 mmol/L (20-32); VENOUS BLOOD PCO2 56.9 mmHg (35-63); VENOUS BLOOD PH 7.36 (7.30-7.42)
[2020-01-26 17:32] LABS: APPEARANCE,URINE CLEAR; BILIRUBIN,URINE NEGATIVE (NEGATIVE); COLOR,URINE YELLOW; GLUCOSE, URINE >=500 mg/dL (NEGATIVE); KETONES,URINE 20 mg/dL (NEGATIVE); LEUKOCYTE ESTERASE,URINE NEGATIVE (NEGATIVE); NITRITE,URINE NEGATIVE (NEGATIVE); PROTEIN,URINE NEGATIVE (NEGATIVE); URINE SPECIFIC GRAVITY 1.027; UROBILINOGEN,URINE NEGATIVE mg/dL (<2.0)
[2020-01-26 17:34] LABS: ALKALINE PHOSPHATASE 97 U/L (38-126); ANION GAP 11 (5-19); ASPARTATE AMINO TRANSFERASE 21 U/L (17-59); BILIRUBIN,TOTAL 0.7 mg/dL (0.2-1.3); BLOOD UREA NITROGEN 17 mg/dL (7-20); CALCIUM 9.7 mg/dL (8.4-10.2); CARBON DIOXIDE 29 mmol/L (22-30); CHLORIDE 98 mmol/L (98-107); GLUCOSE 275 mg/dL (75-110); POTASSIUM 5.1 mmol/L (3.6-5.0); TOTAL PROTEIN 7.2 g/dL (6.3-8.2)
--- NOTE | 2020-01-26 19:21 | ER Document Report ---
ED GI/ - General Chief Complaint: Vomiting Stated Complaint: VOMITING Time Seen by Provider: 01/26/20 15:51 Primary Care Provider: LENKA KRAUS PA-C [Primary Care Provider] - Follow up as needed Mode of Arrival: Wheelchair Information source: Patient Notes: ED Medical Screen (Dann mckeon) - General Chief Complaint: Vomiting Stated Complaint: VOMITING Time Seen by Provider: 01/26/20 15:51 Primary Care Provider: LENKA KRAUS PA-C [Primary Care Provider] - Follow up as needed Mode of Arrival: Wheelchair Information source: Patient Notes: 65-year-old male presented to ED for complaint of nausea vomiting x3 days. He states he did not take his insulin this morning because he could not keep any fluids down. He states his Accu-Chek was about 180 this morning he has not taken it since then but has not eaten and he has not taken any insulin since then. He states he has thrown up 2 times today but has not eaten any food due to the vomiting. States he is urinating a lot more than he normally does and has been more thirsty. He has insulin-dependent diabetic. Patient denies any pain any diarrhea or any other symptoms except for the nausea vomiting frequent urination and thirst. MY NOTES 65-year-old male arrives with chief complaint of IDDM diabetic with nausea and vomiting for 3 days. Patient reports only he and his live together and she is doing well. He has had similar symptoms like this in the past. His urine to day has ketones in. He has not taken any insulin today because he has had poor p.o. intake. He denies any abdominal pain. He denies any dysuria he denies any diarrhea or constipation he denies any sore throat or nuchal rigidity or blurry vision or headache. TRAVEL OUTSIDE OF THE [place] IN LAST 30 DAYS: No - HPI Patient complains to provider of: Abdominal pain, Vomiting Onset: Other - x 3 days - Related Data Allergies/Adverse Reactions: quinine Allergy (Intermediate, Verified 03/04/19 10:02) Hives Past Medical History - General Information source: Patient - Social History Smoking Status: Never Smoker Cigarette use (# per day): No Chew tobacco use (# tins/day): No Smoking Education Provided: No Frequency of alcohol use: Occasional Drug Abuse: None Lives with: Family Family History: None Patient has suicidal ideation: No Patient has homicidal ideation: No - Past Medical History Cardiac Medical History: Reports: Hx Hypercholesterolemia, Hx Hypertension Pulmonary Medical History: Reports: None EENT Medical History: Reports: None Neurological Medical History: Reports: Hx Seizures - as a child, Other - Aneurys ms Endocrine Medical History: Reports: Hx Diabetes Mellitus Type 2 Renal/ Medical History: Reports: None Malignancy Medical History: Reports None GI Medical History: Reports: None Musculoskeletal Medical History: Reports Hx Arthritis, Reports Hx Musculoskeletal Trauma Skin Medical History: Reports None Traumatic Medical History: Reports: Hx Fractures - left wrist right knee Past Surgical History: Reports: Hx Vascular Surgery - Carotid artery stents for aneurysms. Denies: Hx Appendectomy, Hx Bowel Surgery, Hx Cholecystectomy, Hx Coronary Artery Bypass Graft, Hx Gastric Bypass Surgery, Hx Herniorrhaphy, Hx Tonsillectomy Review of Systems - Review of Systems Constitutional: See HPI, Weakness, Recent illness - right brand narvaez zoster pink scars to r forehead EENT: No symptoms reported Cardiovascular: No symptoms reported Respiratory: No symptoms reported Gastrointestinal: See HPI, Nausea, Vomiting Genitourinary: No symptoms reported Male Genitourinary: No symptoms reported Musculoskeletal: No symptoms reported Skin: No symptoms reported Hematologic/Lymphatic: No symptoms reported Neurological/Psychological: No symptoms reported Physical Exam - Vital signs Vitals: Temp Pulse Resp BP Pulse Ox 98.7 F 73 20 105/80 99 01/26/20 15:48 01/26/20 15:48 01/26/20 15:48 01/26/20 15:48 01/26/20 15:48 Interpretation: Normal - General General appearance: Appears well, Alert - HEENT Head: Normocephalic, Atraumatic Eyes: Normal Pupils: PERRL - Respiratory Respiratory status: No respiratory distress Chest status: Nontender Breath sounds: Normal Chest palpation: Normal - Cardiovascular Rhythm: Regular Heart sounds: Normal auscultation Murmur: No - Abdominal Inspection: Normal Distension: No distension Bowel sounds: Hypoactive Tenderness: Nontender Organomegaly: No organomegaly - Rectal Prostate: Other - deferred - Genitourinary Scrotum: Other - deferred - Back Back: Normal, Nontender - Extremities General upper extremity: Normal inspection, Nontender, Normal color, Normal ROM, Normal temperature General lower extremity: Normal inspection, Nontender, Normal color, Normal ROM, Normal temperature, Normal weight bearing. No: Rosa Maria's sign - Neurological Neuro grossly intact: Yes Cognition: Normal Orientation: AAOx4 Berkey Coma Scale Eye Opening: Spontaneous Berkey Coma Scale Verbal: Oriented Berkey Coma Scale Motor: Obeys Commands Berkey Coma Scale Total: 15 Speech: Normal Motor strength normal: LUE, RUE, LLE, RLE Sensory: Normal - Psychological Associated symptoms: Normal affect, Normal mood - Skin Skin Temperature: Warm Skin Moisture: Dry Skin Color: Normal Course - Vital Signs Vital signs: Temp Pulse Resp BP Pulse Ox 98.4 F 73 13 118/65 96 01/26/20 19:22 01/26/20 15:48 01/26/20 21:30 01/26/20 21:30 01/26/20 21:30 - Laboratory Result Diagrams: 01/26/20 16:45 01/26/20 16:45 Laboratory results interpreted by me: 01/26/20 01/26/20 01/26/20 16:04 16:45 16:45 RDW 14.2 H Potassium 5.1 H Glucose 275 H POC Glucose 238 H Urine Glucose (UA) Urine Ketones 01/26/20 01/26/20 01/26/20 16:45 19:07 21:30 RDW Potassium Glucose POC Glucose 260 H 238 H Urine Glucose (UA) >=500 H Urine Ketones 20 H - Diagnostic Test Radiology reviewed: Reports reviewed Discharge - Discharge Clinical Impression: Hyperglycemia, Urine ketones Gastritis Qualifiers: Gastritis type: unspecified gastritis Chronicity: acute Gastritis bleeding: without bleeding Qualified Code(s): K29.00 - Acute gastritis without bleeding Vomiting Qualifiers: Vomiting type: unspecified Vomiting Intractability: non-intractable Nausea presence: with nausea Qualified Code(s): R11.2 - Nausea with vomiting, unspecified Disposition: HOME, SELF-CARE Additional Instructions: Take your Zofran tablets that were provided by the ER 1 tablet every 8 hours as needed for nausea. Try to take sips of fluids and perhaps eat some peanut butter or banana rice applesauce toast rosa isela radha crackers in order to help with the ear abdominal gastritis. Return to ER as needed for true emergencies take medicines as directed. Referrals: LENKA KRAUS PA-C [Primary Care Provider] - Follow up as needed
--- NOTE | 2020-01-26 20:52 | RADIOLOGY REPORT (SQ) ---
EXAM DESCRIPTION: Single view of the abdomen CLINICAL HISTORY: 65 years Male, vomiting COMPARISON: None. FINDINGS: There is an overall paucity of bowel gas which is nonspecific. Only a small amount of air is seen in a bowel loop in the right upper quadrant. Phleboliths are present in the pelvis. There is mild curvature the lumbar spine convex left which may be positional. IMPRESSION: Paucity of bowel gas. This is nonspecific.
[2020-01-26] MEDS ORDERED: ONDANSETRON ODT 4 MG TAB (6 TAB/ER DISP) PO PRN (22:20)
[2020-01-26 23:11] VITALS: BP 132/71
== END 2020-01-26 23:07 | disposition home or self-care (01) ==
LOC: ER 15:38
DX: K29.00 Acute gastritis without bleeding (principal); R11.2 Nausea with vomiting, unspecified; R82.4 Acetonuria; E11.65 Type 2 diabetes mellitus with hyperglycemia; E78.00 Pure hypercholesterolemia, unspecified; I10 Essential (primary) hypertension; Z79.4 Long term (current) use of insulin
CPT/HCPCS: 99284; 96360; 36415; 87086; 82962; 85025; 80053; 81001; 82803; 74018; A9270 ×2; J7030; S0119